=== PATIENT | female | born 1940 | race Caucasian/White ===

== ENCOUNTER 2016-11-08 00:42 | Emergency (ER) | payer MEDICARE, OTHER ==
[~2016-11-08] VITALS: Ht 167.6 cm; Wt 92.4 kg
[2016-11-08 00:42] VITALS: Ht 167.6 cm; Wt 92.4 kg
[~2016-11-08 00:42] MED LIST: ASCO-296 PO; CALC1TAB42 PO; CHON250C2 PO; FERR1TAB24 PO; LEVO175T40 PO; MULT-298 PO; VITA-282 PO; VITA1TAB82 PO; [UNRECOGNIZED DRUG - OTHER] PO
--- OUTSIDE RECORDS SUMMARY | 2016-11-08 00:45 | XMS REPORT | Referral Summary ---
Author Author [facility], Family [facility] Organization [facility] Address Unknown Phone Unavailable Care Team Providers Care Senior Application Security Consultant Name Role Phone Rajan Cole Primary Care Physician [phone] Encounter Date(s): 03/08/16 - 03/08/16 [facility], [address] [place] [id number] Discharge Diagnosis: Adult hypothyroidism Discharge Diagnosis: Osteoarthritis Discharge Diagnosis: Chronic venous insufficiency Discharge Diagnosis: Well woman exam Discharge Disposition: 01-Home or Self Care Attending Physician: Chadwick Cole MD Admitting Physician: Chadwick Cole MD Vital Signs Most recent to 1 oldest [Reference Range]: Temperature Tympanic 36.3 degC [36.6-38.1 degC] *LOW* (03/08/16 9:41 AM) Peripheral Pulse 84 bpm Rate [60-100 bpm] (03/08/16 9:41 AM) Blood Pressure 134/86 mmHg [90-140/60-90 mmHg] (03/08/16 9:41 AM) Problem List Condition Effective Dates Status Health Status Informant Obesity(Confirmed) Active patient Allergies, Adverse Reactions, Alerts Substance Reaction Severity Status aspirin GI problems Active caffeine GI problems Active ciprofloxacin GI problems Active LEG/MUCLE PAIN THIRST Diclofenac Sodium Active doxycycline Rash Active naproxen sodium Active penicillin Rash Active sulfanilamide topical Rash Active Medications Advil 200 mg oral tablet 2 tabs, Oral, q4hr, as needed for pain, 0 Refill(s) Start Date: 01/24/14 Status: Ordered Citracal + D Oral, Daily, takes 2 daily, 0 Refill(s) Start Date: 01/12/14 Status: Ordered Becki Root oral capsule Oral, Daily, 0 Refill(s) Start Date: 03/03/15 Status: Ordered Glucosamine Chondroitin MSM Complex oral tablet 1 tabs, Oral, TID, # 90 tabs, 0 Refill(s) Start Date: 01/12/14 Status: Ordered levothyroxine 175 mcg (0.175 mg) oral tablet See Instructions, TAKE ONE-HALF TABLET BY MOUTH EVERY DAY, # 30 tabs, 6 Refill(s ), Pharmacy: [id number], TAKE ONE-HALF TABLET BY MOUTH EVERY DAY Start Date: 03/03/15 Status: Ordered Misc Medication AVOVADO OIL: Take one by mouth once daily, 0 Refill(s) Start Date: 01/24/14 Status: Ordered potassium gluconate 550 mg, Oral, Daily, 0 Refill(s) Start Date: 08/23/15 Status: Ordered Probiotic Formula oral capsule caps, Oral, Daily, 0 Refill(s) Start Date: 03/03/15 Status: Ordered Vitamin B Complex oral tablet 1 tabs, Oral, Daily, One a Day Womens, 0 Refill(s) Start Date: 01/24/14 Status: Ordered Vitamin C 500 mg oral tablet 1 tabs, Oral, Daily, # 30 tabs, 0 Refill(s) Start Date: 01/12/14 Status: Ordered vitamin E 400 intl units oral capsule 1 caps, Oral, Daily, # 100 caps, 0 Refill(s) Start Date: 01/12/14 Status: Ordered Results No data available for this section Immunizations Vaccine Date Refusal Reason influenza virus vaccine, live 05/07/13 pneumococcal 13-valent conjugate vaccine 03/08/16 pneumococcal 23-polyvalent vaccine 03/03/15 tetanus/diphtheria/pertussis, acel(Tdap) 10/06/10 zoster vaccine live 04/13/12 Procedures Procedure Date Related Diagnosis Body Site DEXA - Dual energy X-ray photon 05/13/13 absorptiometry PAP test date 05/13/13 Mammogram 08/11/11 Colonoscope 08/11/03 Social History Social History Type Response Smoking Status Never smoker Assessment and Plan Extracted from: Title: Office Visit Note Author: Chadwick Cole MD Date: 03/08/16 Assessment/Plan 1.Chronic venous insufficiency I told her that this is the cause of her swelling and some of the discomfort in her lower extremities. I encouraged her to take 15-20 minutes twice a day late morning and late afternoon get her feet elevated above the level of her heart. We also talked about using support stockingsand she'll purchase some of those. No further intervention at this time. Ordered: Office Visit Level 4 Est 64586 2.Adult hypothyroidism She's getting lab drawn today and seeing Dr. Ahn next week no change in treatment at this time. Ordered: Office Visit Level 4 Est 14257 3.Osteoarthritis I think a lot of her lower extremity pain is related to the posterior arthritis in knees and possibly even ankles. Continue current treatment with [id number] medications and supplements for that. If she has worsening symptomsshe does have a relationship with Dr. Martinsfor further follow-up. Ordered: Office Visit Level 4 Est 85611 4.Well woman exam She will schedule her mammogram. She is up-to-date on vaccinations with the exception of Prevnar and we gave that today. Yearly follow-up encouraged. Ordered: Office Visit Level 4 Est 48703 Need for vaccination
--- OUTSIDE RECORDS SUMMARY | 2016-11-08 00:45 | XMS REPORT | Referral Summary ---
Author Author [facility], [facility] Organization [facility] Address Unknown Phone Unavailable Care Team Providers Care Forklift Material Handler Name Role Phone Rajan Cole Primary Care Physician [phone] Encounter VC Date(s): 08/23/15 - 08/23/15 [facility], [address] [place] [id number] Discharge Diagnosis: Dry mouth Discharge Diagnosis: Dysuria Discharge Diagnosis: Osteoarthritis Discharge Diagnosis: Dependent edema Discharge Disposition: 01-Home or Self Care Attending Physician: Chadwick Cole MD Admitting Physician: Chadwick Cole MD Vital Signs Most recent to 1 oldest [Reference Range]: Temperature Tympanic 36.4 degC [36.6-38.1 degC] *LOW* (08/23/15 2:28 PM) Peripheral Pulse 84 bpm Rate [60-100 bpm] (08/23/15 2:28 PM) Respiratory Rate 18 br/min [14-20 br/min] (08/23/15 2:28 PM) Blood Pressure 144/82 mmHg [90-140/60-90 mmHg] *HI* (08/23/15 2:28 PM) Problem List Condition Effective Dates Status Health [...] Status: Ordered Citracal + D Oral, Daily, 0 Refill(s) Start Date: 01/12/14 Status: Ordered Becki Root oral capsule Oral, Daily, 0 Refill(s) Start Date: 03/03/15 Status: Ordered Glucosamine Chondroitin MSM Complex oral tablet 1 tabs, Oral, TID, # 90 tabs, 0 Refill(s) Start Date: 01/12/14 Status: Ordered levothyroxine 175 mcg (0.175 mg) oral tablet See Instructions, TAKE ONE-HALF TABLET BY MOUTH EVERY DAY, # 30 tabs, 6 Refill(s ), Pharmacy: [id number], TAKE ONE-HALF TABLET BY MOUTH EVERY DAY [...] Complex oral tablet 1 tabs, Oral, Daily, 0 Refill(s) Start Date: 01/24/14 Status: Ordered Vitamin C 500 mg oral tablet 1 tabs, Oral, Daily, # 30 tabs, 0 Refill(s) Start Date: 01/12/14 Status: Ordered vitamin E 400 intl units oral capsule 1 caps, Oral, Daily, # 100 caps, 0 Refill(s) Start Date: 01/12/14 Status: Ordered Results Urinalysis Most recent to 1 oldest [Reference Range]: UA Color Yellow (08/23/15 3:20 PM) UA Appear Clear (08/23/15 3:20 PM) UA pH [5.0-8.0] 7.0 (08/23/15 3:20 PM) UA Leuk Est Pos 2+ [Negative] *ABN* (08/23/15 3:20 PM) UA Nitrite Negative [Negative] (08/23/15 3:20 PM) UA Protein Negative [Negative] (08/23/15 3:20 PM) UA Glucose Negative [Negative] (08/23/15 3:20 PM) UA Ketones Negative [Negative] (08/23/15 3:20 PM) UA Urobilinogen 0.2 mg/dL [<1.0 mg/dL] (08/23/15 3:20 PM) UA Bili [Negative] Negative (08/23/15 3:20 PM) UA Blood [Negative] Negative (08/23/15 3:20 PM) UA Spec Grav 1.013 [1.003-1.030] (08/23/15 3:20 PM) Type Clean Catch (08/23/15 3:20 PM) UA WBC [0-4] 10-20 *ABN* (08/23/15 3:20 PM) UA RBC [0-4] 0-4 (08/23/15 3:20 PM) Epithelial Cells 2-5 (08/23/15 3:20 PM) UA Hyal Cast [0-3] 1-3 (08/23/15 3:20 PM) Immunizations Vaccine Date Refusal Reason influenza virus vaccine, live 05/07/13 pneumococcal 23-polyvalent vaccine 03/03/15 tetanus/diphtheria/pertussis, acel(Tdap) 10/06/10 zoster vaccine live 04/13/12 Procedures Procedure Date Related Diagnosis Body Site DEXA - Dual energy X-ray photon 05/13/13 absorptiometry PAP test date 05/13/13 Mammogram 08/11/11 Colonoscope 08/11/03 Social History Social History Type Response Smoking Status Never smoker Assessment and Plan Extracted from: Title: Office Visit Note Author: Chadwick Cole MD Date: 08/23/15 Assessment/Plan Dependent edema reassurance at this time. Increasedtime with feet elevated above the level of the heart is encouraged.compression stockings are encouraged Ordered: Office Visit Level 4 Est 59919 Dry mouth laboratory studies to rule out Sjogren ordered Ordered: SANDIRNE Screen Office Visit Level 4 Est 51253 Rheumatoid Factor SSA Autoantibody SSB Autoantibody Dysuria UA ordered Ordered: Office Visit Level 4 Est 05677 Urinalysis with Culture if Indicated Osteoarthritis continued intermittent ibuprofen usage other options discussed Ordered: Office Visit Level 4 Est 58974
--- OUTSIDE RECORDS SUMMARY | 2016-11-08 00:45 | XMS REPORT | Referral Summary ---
Author Author [facility], Family Medicine Organization [facility] Address Unknown Phone Unavailable Care Team Providers Care Vinyl Welder And Fabricator Name Role Phone Rajan Cole Primary Care Physician [phone] Encounter Date(s): 03/03/15 - 03/03/15 [facility], [address] [place] [id number]- Discharge Diagnosis: Adult hypothyroidism Discharge Diagnosis: Osteoarthritis Discharge Disposition: 01-Home or Self Care Attending Physician: Chadwick Cole MD Admitting Physician: Chadwick Cole MD Vital Signs Most recent to 1 oldest [Reference Range]: Temperature Tympanic 36.8 degC [36.6-38.1 degC] (03/03/15 1:16 PM) Peripheral Pulse 80 bpm Rate [60-100 bpm] (03/03/15 1:16 PM) Respiratory Rate 18 br/min [14-20 br/min] (03/03/15 1:16 PM) Blood Pressure 144/80 mmHg [90-140/60-90 mmHg] *HI* (03/03/15 1:16 PM) Problem List Condition Effective Dates Status [...] # 30 tabs, 6 Refill(s ), Pharmacy: [id number], TAKE ONE-HALF TABLET BY MOUTH EVERY DAY [...] Visit Note Author: Chadwick Cole MD Date: 03/03/15 Assessment/Plan Adult hypothyroidism TSH is normal. No change in treatment recommended refills given on levothyroxine. Ordered: pneumococcal 23-polyvalent vaccine, 0.5 mL, IntraMuscular, Once, First Dose: 15:00:00 CDT, Stop Date: 03/03/15 15:00:00 CDT Office Visit Level 4 Est 20511 Osteoarthritis Chronic stable no change in current treatment. From a health maintenance standpoint I recommended and we did give Pneumovax today. Recent laboratory studies are reviewed no changes in treatment recommended based on those. We talked about further evaluation for her dry mouth she hold off on that. She is overdue for colonoscopy once but that off until later in the year. Mammogram is been recommended and ordered. Ordered: Office Visit Level 4 Est 67500 Orders: levothyroxine, See Instructions, TAKE ONE-HALF TABLET BY MOUTH EVERY DAY, # 30 tabs, 6 Refill(s), Pharmacy: [id number], TAKE ONE-HALF TABLET BY MOUTH EVERY DAY
--- NOTE | 2016-11-08 01:35 | NUR ---
CXR COMPLETED IN ROOM
--- NOTE | 2016-11-08 01:36 | ERPDOC ---
Departure Disposition Decision Date: Nov 08, 2016 Disposition Decision Time: 02:57 Disposition: 01 DISCHARGED HOME, SELF-CARE Impression Impression Impression: Primary Impression: Leg pain, left Severity: Moderate Condition: Stable Seen By: Physician only Referrals: IFTIKHAR BOATENG MD (Family) 1 Day Patient Instructions: Leg Pain (ED) Problems/Meds/Labs Reviewed?: Yes Medications reviewed and manag: Yes Additional Instructions: We did not find a cause of your leg pain tonight. Follow up with Dr. Chau's office tomorrow to determine the status of your referral to the vascular surgeon. You should also discuss what Dr. Boateng thinks would be best for you to take to treat your pain going forward. Speaking with Dr. Martins may give you more information on how to treat your symptoms. Follow up care ordered?: Yes Mental Status: Alert, Oriented HPI - Lower Extremity General Chief Complaint: Lower Extremity Pain Stated Complaint: PAIN IN BOTH LEGS Time Seen by Provider: 01:01 Source: patient, family Exam Limitations: no limitations HPI - Lower Extremity Initial Comments 76yo woman presents to the ER tonight with L>>R LE pain. Pt has a long h/o deep , crampy pain in her left leg; she has seen her PCM for this recently and has been referred to a vascular surgeon for further evaluation. Pt has not scheduled f/u with the vascular surgeon. Occurred At: home Onset/Timing: Constant Duration: other Pain/Severity Scale: Now & Worst: 6/10 Severity: moderate Pain/Injury Location: bilateral leg Method of Injury: unknown Modifying Factors/Context: IMPROVES WITH: immobilization, WORSE WITH: movement Quality: aching, cramping Allergies: Coded Allergies: Penicillins (Verified Allergy, Intermediate, RASH, 11/08/16) diclofenac (Verified Allergy, Intermediate, RASH, 11/08/16) naproxen (Verified Allergy, Intermediate, HIVES, 11/08/16) sulfite (Verified Allergy, Intermediate, RASH, 11/08/16) Shellfish (Verified Allergy, Unknown, 11/08/16) aspirin (Verified Adverse Reaction, Mild, UPSET STOMACH, 11/08/16) doxycycline (Verified Adverse Reaction, Mild, VOMITING, 11/08/16) Past History Past Medical History Metabolic: hypothyroidism Cardiac: CAD Surgical History Reproductive/: hysterectomy Joint: hip Family History Family PMH: FOUND: [place], diabetes, hypertension Vaccines Hx Influenza Vaccination: No Hx Pneumococcal Vaccination: No Hx Tetanus Diptheria: No (UNKNOWN) Review of Systems Musculoskeletal General: cramps, pain All other Systems All Other Systems: Reviewed and Negative Physical Exam General General Nourishment: well nourished, well developed, appears stated age, no acute distress, adult, obese General Body Habitus: well groomed Vitals and Pain Weight: Kilograms: 92.400 Height (feet): 5 Height (inches): 6.00 Triage Pain Scale: RN VS reviewed by Provider: Yes Normal Exams: Head: Normocephalic w/o trauma Eyes: Pupils are PERRLA w/ EOMI, No scleral icterus, irritation ENMT: No facial trauma, nasal exudates, pharyngeal erythema Neck: Full range of motion, without adenopathy, JVD Chest/Resp: Clear all powers, with good airflow, and symmetry bilaterally CV: Regular rate and rhythm, without murmur or gallop, Pulses 2+ all extremities Abdomen: Bowel sounds positive, soft, non-tender, non-distended Lymphatic: No lymphadenopathy Musculoskeletal: No tenderness, or deformity noted Integumentary: No rashes, hives, or bruising noted Neurologic: Patient is alert, and oriented Psychiatric: Patient exhibits, appropriate attention Musculoskeletal Extremity : Side: Bilateral Extremity: thigh, leg Extremity Findings: NOT FOUND: deformity, discoloration, laceration, pain, swelling Differential Diagnoses Considering: Cellulitis, Compartment Syndrome, Contusion, Fracture, Sprain, Strain, Trauma, Vascular Compromise, Other (PAD) Progress Results/Orders Orders Procedure Category Date Status Time Cbc W/Auto LAB 11/08/16 Complete Diff-Reflex Manual 01:21 Bmp - Basic Metabolic LAB 11/08/16 Complete Panel 01:21 Probnp LAB 11/08/16 Complete 01:21 Troponin I W LAB 11/08/16 Complete Hemolysis Index 01:21 INR LAB 11/08/16 Complete 01:21 EKG EKG 11/08/16 Taken 01:21 Chest 1 View RAD 11/08/16 Resulted 01:21 Lab Results Laboratory Tests Test 11/08/16 01:47 White Blood Count 5.5T/MM3 Red Blood Count 4.43M/MM3 Hemoglobin 13.2GM/DL Hematocrit 40.0% Mean Corpuscular Volume 90.3UM3 Mean Corpuscular Hemoglobin 29.8UUG Mean Corpuscular Hemoglobin Concent 33.0GM/DL RDW Standard Deviation 46.5FL Platelet Count 189T/MM3 Mean Platelet Volume 9.9UM3 Immature Granulocyte % (Auto) 0.2% Neutrophils (%) (Auto) 59.5% Lymphocytes (%) (Auto) 28.1% Monocytes (%) (Auto) 9.3% Eosinophils (%) (Auto) 2.7% Basophils (%) (Auto) 0.2% Absolute Immature Granulocyte (auto 0.01T/MM3 Absolute Neutrophils (auto) 3.3T/MM3 Absolute Lymphocytes (auto) 1.5T/MM3 Absolute Monocytes (auto) 0.5T/MM3 Absolute Eosinophils (auto) 0.2T/MM3 Absolute Basophils (auto) 0.0T/MM3 Prothromb Time International Ratio 0.96 Turbidity < 20 Sodium Level 140MEQ/L Potassium Level 4.1MEQ/L Chloride Level 103MEQ/L Carbon Dioxide Level 28MEQ/L Anion Gap 9MEQ/L Blood Urea Nitrogen 14.0MG/DL Creatinine 0.6MG/DL Glomerular Filtration Rate Calc 97 BUN/Creatinine Ratio 23RATIO Glucose Level 85MG/DL Calculated Osmolality 269MOSM/KG Calcium Level 9.7MG/DL Icterus Index < 2 Troponin I < 0.012ng/ml IO-Yoy-M-Type Natriuretic Peptide 137PG/ML Chemistry Specimen Hemolysis < 15 Progress Progress Discussed limits of evaluation with pt who voiced understanding. Conducted evaluation for obvious/emergent causes of pts sx; none found. Discussed dx, prognosis, and need for f/u with pt. Will need to f/u with PCM for chronic medications and to determine status of vascular referral. Pt voiced understanding. EKG EKG : Rate: 60-100 Rhythm: sinus [place]: normal QRS: normal Intervals: normal ST/T: normal Interpreted by: signing physician Xray Xray : Xray: CXR Portable Interpretation: Normal, Interpreted by MARCELINO Gonzalez DO Nov 08, 2016 01:36
[2016-11-08 01:55] LABS: BASOPHILS % (AUTO) 0.2 % (0-2); EOSINOPHILS # (AUTO) 0.2 T/MM3 (0-0.5); EOSINOPHILS % (AUTO) 2.7 % (0-4); HGB - HEMOGLOBIN 13.2 GM/DL (12-16); IMMATURE GRANULOCYTE # (AUTO) 0.01 T/MM3 (0.00-0.03); IMMATURE GRANULOCYTE % (AUTO) 0.2 % (0.0-0.5); LYMPHOCYTES # (AUTO) 1.5 T/MM3 (1-4.8); LYMPHOCYTES % (AUTO) 28.1 % (23-45); MEAN CORPUSCULAR HGB 29.8 UUG (26-34); MEAN CORPUSCULAR VOLUME 90.3 UM3 (80-100); MEAN PLATELET VOLUME 9.9 UM3 (9.4-12.4); MONOCYTES # (AUTO) 0.5 T/MM3 (0-0.8); MONOCYTES % (AUTO) 9.3 % (0-9.0); NEUTROPHILS #(AUTO)-ABSOLUTE 3.3 T/MM3 (1.8-7.7); NEUTROPHILS % (AUTO) 59.5 % (33-66); RED BLOOD COUNT 4.43 M/MM3 (4.00-5.20); WBC - WHITE BLOOD COUNT 5.5 T/MM3 (4.5-11.0)
[2016-11-08 02:00] LABS: INR 0.96 (0.76-1.04); PROTHROMBIN TIME 10.5 SEC (9.31-12.49)
--- NOTE | 2016-11-08 02:00 | NUR ---
STATUS PT IS UP TO THE BATHROOM. AMBULATORY BACK TO HER ROOM
[2016-11-08 02:16] LABS: ANION GAP 9 MEQ/L (5-15); BUN/CREATININE RATIO 23 RATIO (6-26); CALCIUM 9.7 MG/DL (8.4-10.2); CHLORIDE 103 MEQ/L (98-107); CO2 - CARBON DIOXIDE 28 MEQ/L (22-30); CREATININE 0.6 MG/DL (0.7-1.2); GLOMERULAR FILTRATION RATE 97; GLUCOSE 85 MG/DL (65-110); POTASSIUM 4.1 MEQ/L (3.6-5); SODIUM 140 MEQ/L (134-144)
[2016-11-08 02:28] LABS: PROBNP 137 PG/ML (0-175)
[2016-11-08 03:10] VITALS: BP 186/76; PULSE 70; RESP 18; TEMP 98; O2SAT 94
--- NOTE | 2016-11-08 03:10 | NUR ---
depart pt is given dismissal instructions with verbal understanding. p tleaves ambualtory with to ed registration desk
--- NOTE | 2016-11-08 07:55 | DI ---
Indication: ITS.REASON: LE swelling PROCEDURE: CHEST 1 VIEW: Encounter: Initial Comparison: None FINDINGS: The lungs are clear. There is no abnormal airspace opacity, pleural effusion or pneumothorax identified. The heart size, pulmonary vasculature and mediastinum are within normal limits. IMPRESSION: No acute cardiopulmonary abnormality. .
== END 2016-11-08 03:10 | disposition home or self-care (01) ==
LOC: ED 00:42
DX: M79.605 Pain in left leg (principal); M79.604 Pain in right leg
CPT/HCPCS: 36415; 80048; 83880; 84484; 85025; 85610; 93005

== ENCOUNTER → 2016-11-18 | Outpatient (CLI) | payer MEDICARE, OTHER ==
[~2016-11-18] MED LIST changes: -FERR1TAB24 PO
--- NOTE | 2016-11-18 15:20 | DI ---
Indication: ITS.REASON: M79.604 low back and posterior thigh pain for several months PROCEDURE: MRI LUMBAR SPINE W/O CONTRAST: Encounter: Initial Comparison: None Technique: Multiplanar multisequence MR imaging of the lumbar spine was performed without contrast. Findings: Alignment of the lumbar spine shows mild scoliotic curvature. There is degenerative grade 1 anterolisthesis of L5 on S1. No acute fractures seen. The paraspinal soft tissues are unremarkable. Segmental analysis: L1-L2: Mild degenerative facet disease. No focal disk herniation or central canal stenosis. No significant right foraminal narrowing. Mild left neural foraminal narrowing. L2-L3: No focal central protrusion or central canal stenosis. Prominent right lateral osteophytes. No neural foraminal stenosis. L3-L4: Mild disk bulging and height loss and degenerative facet change contributing to mild central canal stenosis. Severe right foraminal stenosis with bony impingement on the exiting right L3 nerve root. Moderate left neural foraminal stenosis. L4-L5: Degenerative facet hypertrophy with a small disk bulge contributes to mild to moderate central canal stenosis and lateral recess narrowing. Severe bony neural foraminal stenosis bilaterally with impingement on both exiting L4 nerve roots. L5-S1: Degenerative facet hypertrophy. No central canal stenosis. Moderate right and mild left neural foraminal stenosis. Impression: Primarily degenerative facet change with areas of neural foraminal stenosis and nerve root impingement. .
== END ==
LOC: IMA 13:21
PROVIDERS: ATTEND Orthopaedic Surgery
DX: M47.896 Other spondylosis, lumbar region (principal); M47.897 Other spondylosis, lumbosacral region; M79.651 Pain in right thigh; M79.652 Pain in left thigh; M54.5 Low back pain

== ENCOUNTER 2017-05-12 04:59 | Inpatient (IN) ==
[2017-05-12] MEDS ORDERED: SALINE FLUSH 10ml SYRINGE IVF PRN (05:09)
[2017-05-12] MEDS ORDERED: NITROGLYCERIN 2% OINTMENT 1gm PACKET TP ONE (05:10)
--- NOTE | 2017-05-12 05:14 | Emergency Department Report ---
Chest Pain HPI - General Stated Complaint: cp Time Seen by Provider: 05/12/17 05:08 Source: patient Mode of arrival: ambulatory Limitations: no limitations - History of Present Illness HPI narrative: Patient presents with 2 hour history of chest pain this morning that she describes as dull pressure aching with radiation into the right side of the neck and into the jaw. Patient was found by EMS to have a normal sinus rhythm on her EKG, normal blood sugars and vital signs, and was given 2 nitroglycerin in route to complete relief of her pain. Patient states that for the past month and a half she's had multiple similar episodes, associated with activity, and resolving with rest. She had seen Dr. Cole her primary care physician, and due to the sensation in the back of the throat, as though it were a burning sensation, she did receive a referral to an ENT physician, but has not seen a physician yet. Patient has no significant risk factors for heart disease other than her age. Patient has no high blood pressure, diabetes, smoking history, coronary disease/NV history, and has never had symptoms like this previously. MD complaint: chest pain Occurred At: home Onset (ago): hour(s) Duration: constant Onset: during rest Pain location: substernal Severity: moderate - Related Data Home Medications Medication Instructions Recorded Confirmed Vitamin E Mixed [Vitamin E] 400 unit PO DAILY #0 05/08/09 Ascorbic Acid [Vitamin C] 500 mg PO DAILY #0 05/09/09 Calcium Citrate/Vitamin D3 1 tab PO BID #0 05/09/09 [Calcium Cit-Vit D 250-200 Tab] Multivits W-Ca,Fe,Other Min 1 tab PO DAILY #0 05/09/09 (One-A-Day Women's) Vitamin B Complex (Vitamin B-100 1 tab.sa PO DAILY #0 05/09/09 Balanced) AVACO ASU 1 tab PO BID #0 03/04/17 Advil (Ibuprofen) 200 mg tablet 200 mg PO .prn tab 03/04/17 shahnaz (Zingiber officinalis) 250 500 mg PO DAILY PRN cap 03/04/17 mg capsule glucosamine-chondroitin 250 mg-200 1 tab PO DAILY tab 03/04/17 mg tablet lactobacillus combination no.8 3 cell PO DAILY cap 03/04/17 billion cell capsule potassium gluconate 500 mg (83 mg) mg PO DAILY tab 03/04/17 tablet nueroquell See Label Instructions PO .COMPLEX 03/17/17 Previous Rx's Medication Instructions Recorded levothyroxine 175 mcg tablet 175 mcg PO .COMPLEX #90 tab 03/17/17 Allergies Allergy/AdvReac Type Severity Reaction Status Date / Time diclofenac Allergy Intermediate RASH Verified 05/12/17 05:20 naproxen Allergy Intermediate HIVES Verified 05/12/17 05:20 Penicillins Allergy Intermediate RASH Verified 05/12/17 05:20 sulfite Allergy Intermediate RASH Verified 05/12/17 05:20 ciprofloxacin [From Cipro] Allergy Verified 05/12/17 05:20 metronidazole Allergy Verified 05/12/17 05:20 aspirin AdvReac Mild UPSET Verified 05/12/17 05:20 STOMACH doxycycline AdvReac Mild VOMITING Verified 05/12/17 05:20 Shellfish Allergy Unknown Uncoded 05/12/17 05:20 lutien Allergy Uncoded 05/12/17 05:20 Review of Systems All systems: reviewed and negative except as stated PFSH Patient Stated Medical History Hx Urinary Tract Infection Yes Osteoarthritis Yes Clostridium Difficile Yes: 2015 [facility] Medical History Hypothyroidism (Chronic Medical ~1975) Clinically and chemically euthyroid. Surgical History: Hysterectomy;2003, 2 hip replacements; 2007 and 2008 Family History: Family History (Last Updated 03/17/17 @ 10:00 by Amira Sheikh MA) Father Heart disease Emphysema (subcutaneous) (surgical) resulting from a procedure Mother Thyroid disease - Social History Smoking status: Never smoker Physical Exam - Limitations Limitations: no limitations - General General appearance: alert - Normal Exams: Head:: Normocephalic without trauma Eyes:: Pupils are PERRLA w/ EOMI, No scleral icterus, irritation, or foreign bodies noted ENMT:: No facial trauma, nasal exudates, pharyngeal erythema, or exudates are noted Neck:: Full range of motion, without adenopathy, JVD, bruits or thyromegaly Chest/Respirations:: Clear all powers, with good airflow, and symmetry bilaterally Cardiovascular:: Regular rate and rhythm, without murmur or gallop, Pulses 2+ all extremities, capillary refill, <2 seconds all extremities Abdomen:: Bowel sounds positive, soft, non-tender, non-distended, no hepatosplenomegaly, masses or bruits noted Lymphatic:: No lymphadenopathy, or lymphedema noted Musculoskeletal:: No tenderness, or deformity noted, good range of motion, all extremities Integumentary:: No rashes, hives, or bruising noted, hair and nails, without abnormality Neurological:: Patient is alert, and oriented, cranial nerves, motor/sensory/ cerebellar, exams w/o gross deficits, to observation Psychiatric:: Patient exhibits, appropriate attention, emotion and affect Course Vital Signs Temperature 98.7 F 05/12/17 04:59 Pulse Rate 73 05/12/17 04:59 Respiratory Rate 18 05/12/17 04:59 Blood Pressure 141/84 H 05/12/17 04:59 Pulse Oximetry 96 05/12/17 04:59 Temperature 98.7 F 05/12/17 04:59 Pulse Rate 73 05/12/17 04:59 Respiratory Rate 18 05/12/17 04:59 Blood Pressure 141/84 H 05/12/17 04:59 Pulse Oximetry 96 05/12/17 04:59 Chest Pain - MDM Narrative Medical decision making narrative: EKG shows a normal sinus rhythm without ischemia, ectopy, or infarction. Patient is chest pain-free at this time, therefore 1 inch of Nitropaste is applied Patient states that she is not allowed to take aspirin, as she has had significant negative reactions including skin hemorrhaging and severe gastritis to aspirin in the past. CBC - N CMP/L - N Troponin - elevated, 0.423 CXR - normal Case is discussed with Dr. BALLARD, will admit to CCU, start heparin drip, and planned catheterization later today - Lab Data Result diagrams: 05/12/17 05:17 05/12/17 05:17 Lab Results 05/12/17 05/12/17 05/12/17 Range/Units 05:17 05:17 05:17 WBC 4.1 L (4.5-11.0) T/MM3 RBC 4.41 (4.00-5.20) M/MM3 Hgb 13.2 (12-16) GM/DL Hct 40.2 (36-46) % MCV 91.2 (80-100) UM3 MCH 29.9 (26-34) UUG MCHC 32.8 (31-37) GM/DL RDW Std Deviation 45.3 (36.9-50.2) FL Plt Count 184 (130-400) T/MM3 MPV 10.4 (9.4-12.4) UM3 Immature Gran % (Auto) 0.5 (0.0-0.5) % Neut % (Auto) 60.2 (33-66) % Lymph % (Auto) 26.8 (23-45) % Lincoln % (Auto) 8.7 (0-9.0) % Eos % (Auto) 3.6 (0-4) % Baso % (Auto) 0.2 (0-2) % Neut # (Auto) 2.5 (1.8-7.7) T/MM3 Lymph # (Auto) 1.1 (1-4.8) T/MM3 Lincoln # (Auto) 0.4 (0-0.8) T/MM3 Eos # (Auto) 0.2 (0-0.5) T/MM3 Baso # (Auto) 0.0 (0-0.2) T/MM3 Abs Immat Gran (auto) 0.02 (0.00-0.03) T/MM3 INR 0.94 L (0.99-1.21) APTT 30.9 (24-36) SEC Turbidity < 20 (0-20) Sodium 140 (134-144) MEQ/L Potassium 3.5 L (3.6-5) MEQ/L Chloride 106 (98-107) MEQ/L Carbon Dioxide 26 (22-30) MEQ/L Anion Gap 8 (5-15) MEQ/L BUN 15.0 (7-17) MG/DL Creatinine 0.7 (0.7-1.2) MG/DL GFR Calculation 81 BUN/Creatinine Ratio 21 (6-26) RATIO Glucose 96 (65-110) MG/DL Calculated Osmolality 270 (261-280) MOSM/KG Calcium 9.7 (8.4-10.2) MG/DL Total Bilirubin 0.60 (0.20-1.30) MG/DL Conjugated Bilirubin 0.00 (0.00-0.30) MG/DL Unconjugated Bilirubin 0.30 (0.00-1.1) MG/DL Icterus Index < 2 (0-7) AST 23 (14-36) U/L ALT 36 (9-52) U/L Alkaline Phosphatase 74 (38-126) U/L Troponin I 0.426 H (0-0.12) ng/ml Total Protein 6.5 (6.3-8.2) G/DL Albumin 3.7 (3.5-5.0) G/DL Globulin 2.8 (2.4-3.6) G/DL Albumin/Globulin Ratio 1.3 (1.1-2.2) RATIO Lipase 55 (23-300) U/L Specimen Hemolysis < 15 (0-25) Critical Care Time Critical Care Time: Yes Total Critical Care Time: 40 Attestation: Patient required advanced diagnostic and therapeutics for non-ST segment elevation NV Disposition Clinical Impression: Non-STEMI (non-ST elevated myocardial infarction) Disposition: 02 To [facility] [place] Acute Care Condition: Improved Prescriptions: No Action Multivits W-Ca,Fe,Other Min (One-A-Day Women's) 1 tab PO DAILY #0 Vitamin E Mixed [Vitamin E] 400 unit PO DAILY #0 Calcium Citrate/Vitamin D3 [Calcium Cit-Vit D 250-200 Tab] 1 tab PO BID #0 Ascorbic Acid [Vitamin C] 500 mg PO DAILY #0 Vitamin B Complex (Vitamin B-100 Balanced) 1 tab.sa PO DAILY #0 AVACO ASU 1 tab PO BID #0 glucosamine-chondroitin 250 mg-200 mg tablet 1 tab PO DAILY tab Advil (Ibuprofen) 200 mg tablet 200 mg PO .prn tab lactobacillus combination no.8 3 billion cell capsule cell PO DAILY cap nueroquell See Label Instructions PO .COMPLEX levothyroxine 175 mcg tablet 175 mcg PO .COMPLEX #90 tab shahnaz (Zingiber officinalis) 250 mg capsule 500 mg PO DAILY PRN cap potassium gluconate 500 mg (83 mg) tablet mg PO DAILY tab - Seen By: physician
--- OUTSIDE RECORDS SUMMARY | 2017-05-12 05:28 | External Medical Summary | Referral Summary ---
:1940 Author Organization [facility] Address [address] [place] [address] [place] [phone] Care Team Providers Name Role Phone Chadwick Cole Primary Care Physician Encounter VC Date(s): 03/08/16 - 03/08/16 [facility] [place] [phone] [place] Discharge Diagnosis: Adult hypothyroidism Discharge Diagnosis: Osteoarthritis Discharge Diagnosis: Chronic venous insufficiency Discharge Diagnosis: Well woman exam Discharge Disposition: 01-Home or Self Care Attending Physician: Chadwick Cole MD Admitting Physician: Chadwick Cole MD Vital Signs Most recent to oldest [Reference Range]: 1 Temperature Tympanic [36.6-38.1 degC] 36.3 degC *LOW* (03/08/16 9:41 AM) Peripheral Pulse Rate [60-100 bpm] 84 bpm (03/08/16 9:41 AM) Blood Pressure [90-140/60-90 mmHg] 134/86 mmHg (03/08/16 9:41 AM) Problem List Condition Effective [...] pain, 0 Refill(s) Start Date: 01/24/14 Status: OrderedCitracal + D Oral, Daily, takes 2 daily, 0 Refill(s) Start Date: 01/12/14 Status: OrderedGinger Root oral capsule Oral, Daily, 0 Refill(s) Start Date: 03/03/15 Status: OrderedGlucosamine Chondroitin MSM Complex oral tablet 1 tabs, Oral, TID, # 90 tabs, 0 Refill(s) Start Date: 01/12/14 Status: Orderedlevothyroxine 175 mcg (0.175 mg) oral tablet See Instructions, TAKE ONE-HALF TABLET BY MOUTH EVERY DAY, # 30 tabs, 6 Refill(s ), Pharmacy: [id number], TAKE ONE-HALF TABLET BY MOUTH EVERY DAY Start Date: 03/03/15 Status: OrderedMisc Medication AVOVADO OIL: Take one by mouth once daily, 0 Refill(s) Start Date: 01/24/14 Status: Orderedpotassium gluconate 550 mg, Oral, Daily, 0 Refill(s) Start Date: 08/23/15 Status: OrderedProbiotic Formula oral capsule caps, Oral, Daily, 0 Refill(s) Start Date: 03/03/15 Status: OrderedVitamin B Complex oral tablet 1 tabs, Oral, Daily, One a Day Womens, 0 Refill(s) Start Date: 01/24/14 Status: OrderedVitamin C 500 mg oral tablet 1 tabs, Oral, Daily, # 30 tabs, 0 Refill(s) Start Date: 01/12/14 Status: Orderedvitamin E 400 intl units oral capsule 1 [...] Site DEXA - Dual energy X-ray photon absorptiometry 05/13/13 PAP test date 05/13/13 Mammogram 08/11/11 Colonoscope [...] take 15-20 minutes twice a day late morn ing and late afternoon get her feet elevated above the level of her heart. We also talked about usingsupport stockingsand she'll purchase some of those. No further intervention at this time. Ordered: Office Visit Level 4 Est 49028 2.Adult hypothyroidism She's getting lab drawn today and seeing Dr. Ahn next week no change in treatment at this time. Ordered: Office Visit Level 4 Est 10363 3.Osteoarthritis I think a lot of her lower extremity pain is related to the posterior arthritis in knees and possibly even ankles. Continue current treatment with [id number] medications a nd supplements for that. If she has worsening symptomsshe does have a relationship with Dr. Martinsfor further follow-up. Ordered: Office Visit Level 4 Est 54834 4.Well woman exam She will schedule her mammogram. She is up-to-date on vaccinations with the exception of Prevnar and we gave that today. Yearly follow-up encouraged. Ordered: Office Visit Level 4 Est 28438 Need for vaccination
--- OUTSIDE RECORDS SUMMARY | 2017-05-12 05:28 | External Medical Summary | Referral Summary ---
:1939 Author Organization [facility] Address [address] [place] [address] [place] [phone] Care Team Providers Name Role Phone Chadwick Cole Primary Care Physician Encounter VC Date(s): 03/03/15 - 03/03/15 [facility] [address] [place] [phone] [place] Discharge Diagnosis: Adult hypothyroidism Discharge Diagnosis: Osteoarthritis Discharge Disposition: 01-Home or Self Care Attending Physician: Chadwick Cole MD Admitting Physician: Chadwick Cole MD Vital Signs Most recent to oldest [Reference Range]: 1 Temperature Tympanic [36.6-38.1 degC] 36.8 degC (03/03/15 1:16 PM) Peripheral Pulse Rate [60-100 bpm] 80 bpm (03/03/15 1:16 PM) Respiratory Rate [14-20 br/min] 18 br/min (03/03/15 1:16 PM) Blood Pressure [90-140/60-90 mmHg] 144/80 mmHg *HI* (03/03/15 1:16 PM) Problem List Condition [...] 01/24/14 Status: OrderedCitracal + D Oral, Daily, 0 Refill(s) Start Date: 01/12/14 Status: OrderedGinger Root oral capsule Oral, Daily, 0 Refill(s) Start Date: 03/03/15 Status: OrderedGlucosamine Chondroitin MSM Complex oral tablet 1 tabs, Oral, TID, # 90 tabs, 0 Refill(s) Start Date: 01/12/14 Status: Orderedlevothyroxine 175 mcg (0.175 mg) oral tablet See Instructions, TAKE ONE-HALF TABLET BY MOUTH EVERY DAY, # 30 tabs, 6 Refill(s ), Pharmacy: [id number], TAKE ONE-HALF TABLET BY MOUTH EVERY [...] Daily, 0 Refill(s) Start Date: 01/24/14 Status: OrderedVitamin [...] vaccine, 0.5 mL, IntraMuscular, Once, First Dose: 03/03/15 15:00:00 CDT, Stop Date: 03/03/15 15:00:00 CDT Office Visit Level 4 Est 87475 Osteoarthritis Chronic stable no change in current treatment. From a health maintenance standpoint I recommended and we did give Pneumovax today. Recent laboratory studies are reviewed no changes in treatment recommended based on those. We talked about furth er evaluation for her dry mouth she hold off on that. She is overdue for colonoscopy once but that off until later in the year. Mammogram is been recommended and ordered. Ordered: Office Visit Level 4 Est 97294 Orders: levothyroxine, See Instructions, TAKE ONE-HALF TABLET BY MOUTH EVERY DAY, # 30 tabs, 6 Refill(s), Pharmacy: [id number], TAKE ONE-HALF TABLET BY MOUTH EVERY DAY
--- OUTSIDE RECORDS SUMMARY | 2017-05-12 05:28 | External Medical Summary | Referral Summary ---
:1939 Author Organization [facility] Address [address] [place] [address] [place] [phone] Care Team Providers Name Role Phone Chadwick Cole Primary Care Physician Encounter VC Date(s): 08/23/15 - 08/23/15 [facility] [place] [phone] [place] Discharge Diagnosis: Dry mouth Discharge Diagnosis: Dysuria Discharge Diagnosis: Osteoarthritis Discharge Diagnosis: Dependent edema Discharge Disposition: 01-Home or Self Care Attending Physician: Chadwick Cole MD Admitting Physician: Chadwick Cole MD Vital Signs Most recent to oldest [Reference Range]: 1 Temperature Tympanic [36.6-38.1 degC] 36.4 degC *LOW* (08/23/15 2:28 PM) Peripheral Pulse Rate [60-100 bpm] 84 bpm (08/23/15 2:28 PM) Respiratory Rate [14-20 br/min] 18 br/min (08/23/15 2:28 PM) Blood Pressure [90-140/60-90 mmHg] 144/82 mmHg *HI* (08/23/15 2:28 PM) Problem List Condition [...] # 30 tabs, 6 Refill(s ), Pharmacy: [id number], TAKE ONE-HALF TABLET BY MOUTH EVERY [...] Status: Ordered Results Urinalysis Most recent to oldest [Reference Range]: 1 UA Color Yellow (08/23/15 3:20 PM) UA Appear Clear (08/23/15 3:20 PM) UA pH [5.0-8.0] 7.0 (08/23/15 3:20 PM) UA Leuk Est [Negative] Pos 2+ *ABN* (08/23/15 3:20 PM) UA Nitrite [Negative] Negative (08/23/15 3:20 PM) UA Protein [Negative] Negative (08/23/15 3:20 PM) UA Glucose [Negative] Negative (08/23/15 3:20 PM) UA Ketones [Negative] Negative (08/23/15 3:20 PM) UA Urobilinogen [<1.0 mg/dL] 0.2 mg/dL (08/23/15 3:20 PM) UA Bili [Negative] Negative (08/23/15 3:20 PM) UA Blood [Negative] Negative (08/23/15 3:20 PM) UA Spec Grav [1.003-1.030] 1.013 (08/23/15 3:20 PM) Type Clean Catch (08/23/15 [...] encouraged Ordered: Office Visit Level 4 Est 42703 Dry mouth laboratory studies to rule out Sjogren ordered Ordered: SANDRINE Screen Office Visit Level 4 Est 33100 Rheumatoid Factor SSA Autoantibody SSB Autoantibody Dysuria UA ordered Ordered: Office Visit Level 4 Est 88523 Urinalysis with Culture if Indicated Osteoarthritis continued intermittent ibuprofen usage other options discussed Ordered: Office Visit Level 4 Est 63827
[2017-05-12] MEDS ORDERED: HEPARIN 1,000unit/ml INJECTION 10ml IVP ONE (06:00)
[2017-05-12] MEDS ORDERED: HEPARIN DRIP 20,000 UNIT/500 ML BAG IV SCH (06:15)
[2017-05-12 06:45] VITALS: BMI 32.3
[2017-05-12] MEDS ORDERED: PNEUMOCOCCAL 23 VACCINE 0.5ml INJECTION IM ONE (06:48)
--- NOTE | 2017-05-12 07:52 | Pharmacy Consult ---
Pharmacy Consult-Heparin - Laboratory Information Heparin Plt Count 184 T/MM3 (130-400) 05/12/17 05:17 APTT 30.9 SEC (24-36) 05/12/17 05:17 - Consult Information HEPARIN CONSULT (Initial): Dx: CHEST PAIN Baseline PTT = NOT ORDERED. Baseline platelet count = 184 T/mm3. PTT Target Range = 50-75 Provider ordered Heparin Bolus of 4,000units, and begun Heparin Drip at 1, 000units/hr (25ml/hr). Heparin 20,000 units in D5W 500ml. We will continue to monitor and make adjustments accordingly. Thank you.
--- NOTE | 2017-05-12 08:39 | XRay Report ---
Indication: Upper chest pain PROCEDURE: XR chest 1V: Encounter: Initial Comparison: None FINDINGS: The lungs are clear. Left lower lobe granuloma. There is no abnormal airspace opacity, pleural effusion or pneumothorax identified. The heart size, pulmonary vasculature and mediastinum are within normal limits. IMPRESSION: No acute cardiopulmonary abnormality. .
[2017-05-12] MEDS: NITROGLYCERIN 2% OINTMENT 1gm PACKET TP SCH ×2 (09:13→16:51)
[2017-05-12] MEDS ORDERED: INFLUENZA VAC High Dose 2017-18 (Fluzone HD*) (>=65yo) 0.5ml IM ONE (09:18)
[2017-05-12] MEDS ORDERED: INFLUENZA VAC. INJ. ADMIN CHARGE INJ ONE (09:50)
--- NOTE | 2017-05-12 10:41 | Cardiology History & Physical ---
History of Present Illness Chief complaint: chest pain HPI: Sandra is a 76 year old female patient of Dr. Chadwick Cole who presented to the ED a with 2 hour history of chest pain this morning that she described as dull pressure, aching with radiation into the right side of the neck and into the jaw. She was found by EMS to have a normal sinus rhythm on her EKG, normal blood sugars and vital signs, and was given 2 nitroglycerin in route to complete relief of her pain. She reported that for the past month and a half she 's had multiple similar episodes, associated with activity, and resolving with rest. She had seen Dr. Cole due to the sensation in the back of the throat and her right ear and jaw, as though it were a burning sensation, she did receive a referral to an ENT physician, but has not seen a physician yet. She has no significant risk factors for heart disease other than her age. She has no high blood pressure, diabetes, smoking history, coronary disease/OR history, and has never had symptoms like this previously. She is examined in her room in CCU. She reports recently being started on Meloxicam for hip and leg pain. Her episodes of chest pain with exertion began around the same time but usually resolved with rest. The episode that brought her into the ED was across her chest and upper arms, and did not resolve until she was given nitro. She denies fever, chills, sore throat, cough, dyspnea, N/V/ D, or dysuria. Review of Systems - Constitutional Constitutional: Absent: chills, fatigue, fever(s) - EENMT Eyes: Absent: change in vision Balance: Absent: vertigo Mouth/Throat: Absent: sore throat - Cardiovascular Cardiovascular: Present: chest pain, edema. Absent: palpitations, syncope, dyspnea on exertion, orthopnea, heart murmur Rhythm: Present: regular rhythm Vascular: Present: pedal edema - Respiratory Respiratory: Absent: cough, dyspnea, dyspnea on exertion - Gastrointestinal Gastrointestinal: Absent: abdominal pain, diarrhea, nausea, vomiting - Genitourinary Genitourinary: Absent: dysuria - Integumentary/Breasts Integumentary: Absent: rash - Neurological Neurological: Absent: dizziness - Endocrine Endocrine: Absent: palpitations [facility] Patient Stated Medical History Hx Urinary Tract Infection Yes Osteoarthritis Yes Clostridium Difficile Yes: 2014 [facility] Medical History Hypothyroidism (Chronic Medical ~1975) Clinically and chemically euthyroid. Surgical History: Hysterectomy;2003, 2 hip replacements; 2007 and 2008 Family History: Family History (Last Updated 03/17/17 @ 10:00 by Amira Sheikh MA) Father Heart disease Emphysema (subcutaneous) (surgical) resulting from a procedure Mother Thyroid disease - Social History Smoking status: Never smoker Substance use type: does not use Alcohol intake frequency: does not drink Household members: spouse Current occupational status: retired Current residence: Apartment/Private Home Medications Home Medications Medication Instructions Recorded Confirmed Type Vitamin E Mixed [Vitamin E] 400 unit PO DAILY #0 05/08/09 05/12/17 History Ascorbic Acid [Vitamin C] 500 mg PO DAILY #0 05/09/09 05/12/17 History Calcium Citrate/Vitamin D3 1 tab PO BID #0 05/09/09 05/12/17 History [Calcium Cit-Vit D 250-200 Tab] Multivit,Calc,Mins/Iron/Folic 1 each PO DAILY #0 05/09/09 05/12/17 History [One-A-Day Women's Tablet] Vitamin B Complex 100 No.2 [B-100 100 mg PO DAILY #0 05/09/09 05/12/17 History Complex] AVACO ASU 1 tab PO BID #0 03/04/17 05/12/17 History shahnaz (Zingiber officinalis) 250 500 mg PO DAILY cap 03/04/17 05/12/17 History mg capsule glucosamine-chondroitin 250 mg-200 1 tab PO DAILY tab 03/04/17 05/12/17 History mg tablet potassium gluconate 500 mg (83 mg) 500 mg PO DAILY tab 03/04/17 05/12/17 History tablet Lactobacillus Acidophilus 1 cap PO DAILY 05/12/17 05/12/17 History [Probiotic] Meloxicam 7.5 mg PO DAILY 05/12/17 05/12/17 History Allergies Allergy/AdvReac Type Severity Reaction Status Date / Time diclofenac Allergy Intermediate RASH Verified 05/12/17 05:20 naproxen Allergy Intermediate HIVES Verified 05/12/17 05:20 Penicillins Allergy Intermediate RASH Verified 05/12/17 05:20 sulfite Allergy Intermediate RASH Verified 05/12/17 05:20 ciprofloxacin [From Cipro] Allergy Verified 05/12/17 05:20 metronidazole Allergy Verified 05/12/17 05:20 aspirin AdvReac Mild UPSET Verified 05/12/17 05:20 STOMACH doxycycline AdvReac Mild VOMITING Verified 05/12/17 05:20 Shellfish Allergy Unknown Uncoded 05/12/17 05:20 lutien Allergy Uncoded 05/12/17 05:20 Exam Vital signs: Temperature 96.8 F 05/12/17 08:00 Pulse Rate 71 05/12/17 09:45 Respiratory Rate 20 05/12/17 09:45 Blood Pressure 129/66 05/12/17 09:30 Pulse Oximetry 96 05/12/17 09:45 - Constitutional no acute distress, obese, cooperative - Routine HEENT Exam Head: Present: normocephalic ENT: Present: mucous membranes moist - Routine Neck Exam Absent: JVD, carotid bruit - Routine Chest/Breast/Axilla Exam Chest wall: Absent: tenderness - Routine Respiratory Exam Present: CTA bilaterally. Absent: rales, wheezes - Routine Cardiovascular Exam Present: RRR, no murmur. Absent: JVD - Routine Abdominal Exam Present: soft, normoactive bowel sounds - Routine Extremities Exam Present: no edema - Routine Skin Exam Present: intact, dry, warm - Routine Neurological Exam Present: alert, oriented X3 - Routine Psychiatric Exam Present: normal affect, normal thought process Results 05/12/17 05:17 05/12/17 05:17 Intake and Output 05/11/17 05/12/17 05/12/17 22:59 06:59 14:59 Intake Total 19.167 / 19.167 Output Total 500 / 500 Balance -500 / -500 19.167 / 19.167 Intake: IV 19.167 / 19.167 HEPARIN DRIP 20,000 unit 19.167 / 19.167 In 500 ml @ 1,000 UNIT/HR 25 mls/hr IV .Q20H [facility] Rx#:[id number] Output: Urine 500 / 500 Other: Urine Appearance Clear Urine Color Yellow Urine Odor Normal Weight 200 lb 2.876 oz 200 lb 2.876 oz Patient Weight 05/13/17 06:59 Weight 200 lb 2.876 oz Laboratory Results - last 24 hr 05/12/17 05/12/17 05/12/17 05:17 05:17 05:17 WBC 4.1 L RBC 4.41 Hgb 13.2 Hct 40.2 MCV 91.2 MCH 29.9 MCHC 32.8 RDW Std Deviation 45.3 Plt Count 184 MPV 10.4 Immature Gran % (Auto) 0.5 Neut % (Auto) 60.2 Lymph % (Auto) 26.8 Rutherford % (Auto) 8.7 Eos % (Auto) 3.6 Baso % (Auto) 0.2 Neut # (Auto) 2.5 Lymph # (Auto) 1.1 Rutherford # (Auto) 0.4 Eos # (Auto) 0.2 Baso # (Auto) 0.0 Abs Immat Gran (auto) 0.02 INR 0.94 L APTT 30.9 Turbidity < 20 Sodium 140 Potassium 3.5 L Chloride 106 Carbon Dioxide 26 Anion Gap 8 BUN 15.0 Creatinine 0.7 GFR Calculation 81 BUN/Creatinine Ratio 21 Glucose 96 Calculated Osmolality 270 Calcium 9.7 Total Bilirubin 0.60 Conjugated Bilirubin 0.00 Unconjugated Bilirubin 0.30 Icterus Index < 2 AST 23 ALT 36 Alkaline Phosphatase 74 Troponin I 0.426 H Total Protein 6.5 Albumin 3.7 Globulin 2.8 Albumin/Globulin Ratio 1.3 Lipase 55 Specimen Hemolysis < 15 - Imaging and Cardiology Echo: pending Imaging & Cardiology Narrative: Date of Exam: 05/12/17 Ordering Provider: Carlos Eduardo Lindsey MD Type of Exam(s): XR chest 1V Reason for Exam(s): chest pain Indication: Upper chest pain PROCEDURE: XR chest 1V: Encounter: Initial Comparison: None FINDINGS: The lungs are clear. Left lower lobe granuloma. There is no abnormal airspace opacity, pleural effusion or pneumothorax identified. The heart size, pulmonary vasculature and mediastinum are within normal limits. IMPRESSION: No acute cardiopulmonary abnormality. EKG interpretations - EKG EKG results cardiology: sinus rhythm - Blocks, axis, hypertrophy, ST abn Repolarization changes or abnormalities: nonspecific abnormality, ST segment, and/or T wave Hospital Course This is a general summary of the patient's hospital course. For more details refer to the complete medical record. Hospital course: 05/12/17 - Admit to CCU - Heparin per pharmacy consult - Trend serial troponin levels - EKG: SR with T wave abnormality - Obtain echo - NPO for Heart cath this afternoon - Start BB, ACEI, Statin, Aspirin - Lipid panel in am Time spent with patient: 25 - 35 minutes DVT Prophylaxis: Heparin drip Assessment and Plan - Attestation Attestation Narrative: 05/16/17 15:33 Recommendation After examining the patient I agree with the above assessment. I am involved in the formulation of the patient's plan of care. - Assessment and Plan (1) Non-STEMI (non-ST elevated myocardial infarction) Status: Acute - Admit to CCU - Heparin per pharmacy consult - Trend serial troponin levels - EKG: SR with T wave abnormality - Obtain echo - NPO for Heart cath this afternoon - Start BB, ACEI, Statin, Aspirin - Lipid panel in am (2) Hypothyroidism Problem details: Clinically and chemically euthyroid. Status: Chronic Continue home thyroid medication (3) Obesity (BMI 30-39.9) Problem details: Better. Status: Chronic
[2017-05-12] MEDS ORDERED: LISINOPRIL 2.5 MG TABLET PO SCH (11:30)
[2017-05-12] MEDS ORDERED: IOHEXOL 350mg/ml 200ml BOTTLE ONE (12:37)
[2017-05-12] MEDS ORDERED: LIDOCAINE 1% (10mg/ml) 30ml SDV INJ ONE (12:37)
[2017-05-12] MEDS ORDERED: HEPARIN 1,000 UNITS/500 ML PREMIX (*CVL ONLY*) IV ONE (12:37)
[2017-05-12] MEDS ORDERED: NS 1,000 ML IV SCH (12:45)
[2017-05-12] MEDS ORDERED: FentaNYL 100 MCG/2 ML INJECTION ONE (12:49)
[2017-05-12] MEDS ORDERED: NITROGLYCERIN 50MG INJECTION IV ONE (12:50)
[2017-05-12] MEDS ORDERED: MIDAZOLAM 2mg/2ml INJECTION ONE (12:50)
[2017-05-12] MEDS ORDERED: HEPARIN 1,000unit/ml INJECTION 10ml ONE (12:50)
[2017-05-12] MEDS ORDERED: Verapamil 5 MG/2 ML VIAL ONE (12:50)
[2017-05-12] MEDS ORDERED: SALINE FLUSH 10ml SYRINGE ONE (13:07)
[2017-05-12] MEDS ORDERED: METOCLOPRAMIDE 10mg/2ml INJECTION IVP PRN (13:50)
[2017-05-12] MEDS ORDERED: ACETAMINOPHEN 325 MG TABLET PO PRN (13:50)
[2017-05-12] MEDS ORDERED: ONDANSETRON 4 MG/2 ML INJECTION IVP PRN (13:50)
[2017-05-12] MEDS ORDERED: BISACODYL 10 MG SUPPOSITORY RECTALLY PRN (13:50)
[2017-05-12] MEDS ORDERED: PROMETHAZINE 25 MG INJECTION IVP PRN (13:50)
[2017-05-12] MEDS ORDERED: Bisacodyl EC TAB 5 MG TABLET PO PRN (13:50)
[2017-05-12] MEDS ORDERED: MAG-AL + SIM ORAL LIQUID 30ml PO PRN (13:50)
[2017-05-12] MEDS ORDERED: HYDROCODONE/APAP 5mg/325mg TABLET PO PRN (13:50)
[2017-05-12] MEDS ORDERED: NITROGLYCERIN 0.4 MG SUBLINGUAL TABLET SL PRN (13:50)
[2017-05-12] MEDS ORDERED: MORPHINE SULFATE 4 MG SYRINGE IVP PRN ×2 (13:50)
[2017-05-12] MEDS ORDERED: ATROPINE 1 MG/ML INJECTION IVP PRN (13:50)
[2017-05-12] MEDS ORDERED: LORazepam 0.5 MG TABLET PO PRN (13:50)
--- NOTE | 2017-05-12 15:28 | Discharge Summary ---
<Nuria Wiley - Last Filed: 05/12/17 15:25> Discharge Information Date of admission: 05/12/17 06:03 Anticipated date of discharge: 05/12/17 Attending Physician: Nadir Fang MD Primary care physician: Chadwick Cole MD Consults: 05/12/17 Pharmacy Consult [CONS] Routine Pharmacy Consult: Heparin 05/12/17 13:50 Outpt Cardiac Rehab Consult [CONS] Routine - Discharge Diagnosis (1) Non-STEMI (non-ST elevated myocardial infarction) Status: Acute (2) Hypothyroidism Status: Chronic (3) Obesity (BMI 30-39.9) Status: Chronic - Laboratory Labs: Laboratory Results - last 24 hr 05/12/17 05/12/17 05/12/17 05:17 05:17 05:17 WBC 4.1 L RBC 4.41 Hgb 13.2 Hct 40.2 MCV 91.2 MCH 29.9 MCHC 32.8 RDW Std Deviation 45.3 Plt Count 184 MPV 10.4 Immature Gran % (Auto) 0.5 Neut % (Auto) 60.2 Lymph % (Auto) 26.8 Atkinson % (Auto) 8.7 Eos % (Auto) 3.6 Baso % (Auto) 0.2 Neut # (Auto) 2.5 Lymph # (Auto) 1.1 Atkinson # (Auto) 0.4 Eos # (Auto) 0.2 Baso # (Auto) 0.0 Abs Immat Gran (auto) 0.02 INR 0.94 L APTT 30.9 Turbidity < 20 Sodium 140 Potassium 3.5 L Chloride 106 Carbon Dioxide 26 Anion Gap 8 BUN 15.0 Creatinine 0.7 GFR Calculation 81 BUN/Creatinine Ratio 21 Glucose 96 Calculated Osmolality 270 Calcium 9.7 Total Bilirubin 0.60 Conjugated Bilirubin 0.00 Unconjugated Bilirubin 0.30 Icterus Index < 2 AST 23 ALT 36 Alkaline Phosphatase 74 Troponin I 0.426 H Total Protein 6.5 Albumin 3.7 Globulin 2.8 Albumin/Globulin Ratio 1.3 Lipase 55 Specimen Hemolysis < 15 05/12/17 10:55 WBC RBC Hgb Hct MCV MCH MCHC RDW Std Deviation Plt Count MPV Immature Gran % (Auto) Neut % (Auto) Lymph % (Auto) Atkinson % (Auto) Eos % (Auto) Baso % (Auto) Neut # (Auto) Lymph # (Auto) Atkinson # (Auto) Eos # (Auto) Baso # (Auto) Abs Immat Gran (auto) INR APTT Turbidity Sodium Potassium Chloride Carbon Dioxide Anion Gap BUN Creatinine GFR Calculation BUN/Creatinine Ratio Glucose Calculated Osmolality Calcium Total Bilirubin Conjugated Bilirubin Unconjugated Bilirubin Icterus Index AST ALT Alkaline Phosphatase Troponin I 0.739 H D Total Protein Albumin Globulin Albumin/Globulin Ratio Lipase Specimen Hemolysis < 15 - Radiology Radiology: Date of Exam: 05/12/17 Ordering Provider: Carlos Eduardo Lindsey MD Type of Exam(s): XR chest 1V Reason for Exam(s): chest pain Indication: Upper chest pain PROCEDURE: XR chest 1V: Encounter: Initial Comparison: None FINDINGS: The lungs are clear. Left lower lobe granuloma. There is no abnormal airspace opacity, pleural effusion or pneumothorax identified. The heart size, pulmonary vasculature and mediastinum are within normal limits. IMPRESSION: No acute cardiopulmonary abnormality. History of Present Illness HPI: Sandra is a 76 year old female patient of Dr. Chadwick Cole who presented to the ED a with 2 hour history of chest pain this morning that she described as dull pressure, aching with radiation into the right side of the neck and into the jaw. She was found by EMS to have a normal sinus rhythm on her EKG, normal blood sugars and vital signs, and was given 2 nitroglycerin in route to complete relief of her pain. She reported that for the past month and a half she 's had multiple similar episodes, associated with activity, and resolving with rest. She had seen Dr. Cole due to the sensation in the back of the throat and her right ear and jaw, as though it were a burning sensation, she did receive a referral to an ENT physician, but has not seen a physician yet. She has no significant risk factors for heart disease other than her age. She has no high blood pressure, diabetes, smoking history, coronary disease/LA history, and has never had symptoms like this previously. She is examined in her room in CCU. She reports recently being started on Meloxicam for hip and leg pain. Her episodes of chest pain with exertion began around the same time but usually resolved with rest. The episode that brought her into the ED was across her chest and upper arms, and did not resolve until she was given nitro. She denies fever, chills, sore throat, cough, dyspnea, N/V/ D, or dysuria. Hospital Course This is a general summary of the patient's hospital course. For more details refer to the complete medical record. Hospital course: 05/12/17 - Admit to CCU - Heparin per pharmacy consult - Trend serial troponin levels - EKG: SR with T wave abnormality - Obtain echo - NPO for Heart cath this afternoon - Start BB, ACEI, Statin, Aspirin - Lipid panel in am Exam Vital signs: Temperature 98.2 F 05/12/17 12:00 Pulse Rate 61 05/12/17 15:16 Respiratory Rate 19 05/12/17 15:16 Blood Pressure 154/81 H 05/12/17 12:40 Pulse Oximetry 95 05/12/17 15:16 - Constitutional no acute distress, obese, cooperative - Routine HEENT Exam Head: Present: normocephalic ENT: Present: mucous membranes moist - Routine Neck Exam Absent: JVD, carotid bruit - Routine Chest/Breast/Axilla Exam Chest wall: Absent: tenderness - Routine Respiratory Exam Present: CTA bilaterally. Absent: rales, wheezes - Routine Cardiovascular Exam Present: RRR, no murmur. Absent: JVD - Routine Abdominal Exam Present: soft, normoactive bowel sounds - Routine Extremities Exam Present: no edema - Routine Skin Exam Present: intact, dry, warm - Routine Neurological Exam Present: alert, oriented X3 - Routine Psychiatric Exam Present: normal affect, normal thought process Results 05/12/17 05:17 05/12/17 05:17 Cardiac Enzymes 05/12/17 Range/Units 10:55 Troponin I 0.739 H D (0-0.12) ng/ml Intake and Output 05/12/17 05/12/17 05/12/17 06:59 14:59 22:59 Intake Total 19.167 / 19.167 Output Total 500 / 500 Balance -500 / -500 19.167 / 19.167 Intake: IV 19.167 / 19.167 HEPARIN DRIP 20,000 unit 19.167 / 19.167 In 500 ml @ 1,000 UNIT/HR 25 mls/hr IV .Q20H [facility] Rx#:[id number] Output: Urine 500 / 500 Other: Urine Appearance Clear Urine Color Yellow Urine Odor Normal Weight 200 lb 2.876 oz 200 lb 2.876 oz Patient Weight 05/13/17 06:59 Weight 200 lb 2.876 oz - Imaging and Cardiology Echo: pending Cardiac cath: pending - EKG Interpretation EKG: sinus rhythm Discharge Plan - Med Rec/Dispo Referrals/Follow Up: Chadwick Cole MD [Family Provider] - Nadir Fang MD [Physician] - Hafsa Instructions: [facility] [place] Heart Cath Trans Rad Prescriptions: New Atorvastatin [Lipitor] 40 mg PO HS tablet Lisinopril [Prinivil] 2.5 mg PO DAILY tablet Metoprolol Tartrate [Lopressor] 12.5 mg PO BIDWM tablet Aspirin *EC* [Ecotrin] 81 mg PO DAILY tablet Continue Multivit,Calc,Mins/Iron/Folic [One-A-Day Women's Tablet] 1 each PO DAILY #0 Vitamin E Mixed [Vitamin E] 400 unit PO DAILY #0 Meloxicam 7.5 mg PO DAILY Lactobacillus Acidophilus [Probiotic] 1 cap PO DAILY Calcium Citrate/Vitamin D3 [Calcium Cit-Vit D 250-200 Tab] 1 tab PO BID #0 Ascorbic Acid [Vitamin C] 500 mg PO DAILY #0 Vitamin B Complex 100 No.2 [B-100 Complex] 100 mg PO DAILY #0 AVACO ASU 1 tab PO BID #0 glucosamine-chondroitin 250 mg-200 mg tablet 1 tab PO DAILY tab levothyroxine 175 mcg tablet 175 mcg PO .COMPLEX #90 tab potassium gluconate 500 mg (83 mg) tablet 500 mg PO DAILY tab No Action shahnaz (Zingiber officinalis) 250 mg capsule 500 mg PO DAILY cap - Disposition [address] [facility] Acute Care <Nadir Fang - Last Filed: 05/16/17 15:37> Discharge Information Date of admission: 05/12/17 06:03 Attending Physician: Nadir Fang MD Primary care physician: Chadwick Cole MD Consults: 05/12/17 Pharmacy Consult [CONS] Routine Pharmacy Consult: Heparin 05/12/17 13:50 Outpt Cardiac Rehab Consult [CONS] Routine - Discharge Diagnosis (1) Non-STEMI (non-ST elevated myocardial infarction) Status: Acute (2) Hypothyroidism Status: Chronic (3) Obesity (BMI 30-39.9) Status: Chronic Hospital Course This is a general summary of the patient's hospital course. For more details refer to the complete medical record. Exam Vital signs: Temperature 96.8 F 05/12/17 16:00 Pulse Rate 74 05/12/17 17:00 Respiratory Rate 31 H 05/12/17 17:00 Blood Pressure 117/64 05/12/17 16:45 Pulse Oximetry 96 05/12/17 17:00 Results 05/12/17 05:17 05/12/17 05:17 Discharge Plan - Med Rec/Dispo - Attestation Attestation Narrative: 05/16/17 15:37 Recommendation After examining the patient I agree with the above assessment. I am involved in the formulation of the patient's plan of care.
[2017-05-12 19:18] VITALS: BP 117/64; PULSE 74; RESP 31; TEMP 96.8; O2SAT 96
[2017-05-12] MEDS ORDERED: ATORVASTATIN 40 MG TABLET PO SCH (21:00)
[2017-05-13] MEDS ORDERED: LEVOTHYROXINE 175 MCG TABLET PO SCH (06:30)
[2017-05-13] MEDS ORDERED: ASPIRIN *EC* 81 MG TABLET PO SCH (09:00)
--- NOTE | 2017-05-13 12:42 | Echocardiogram ---
DATE OF PROCEDURE May 12, 2017 This is a two-dimensional echo with spectral Doppler, color-flow and M-mode. It was obtained in a patient with non-STEMI. Left atrial dimension is normal. Left ventricle end-diastolic dimension is increased. Left ventricle wall thickness is normal. Posterior and lateral palmer are hypokinetic with ejection fraction of about 50%. Right atrium is normal. Right ventricle is normal. Aortic root dimension is normal. Mitral valve is morphologically normal with trace of mitral regurgitation. Aortic valve appears to be normal. Tricuspid valve shows trace of tricuspid regurgitation with normal estimated pulmonary artery systolic pressure of 31. Pulmonary valve shows no pulmonary insufficiency. There is no pericardial effusion. IMPRESSION 1. Wall motion abnormalities as described above with ejection fraction of 50%. 2. Left ventricular dilation. 3. Trace of mitral regurgitation. 4. Trace of tricuspid regurgitation with normal estimated pulmonary artery systolic pressure of 31. MTDD
--- NOTE | 2017-05-13 13:09 | Cardiac Catheterization Report ---
DATE OF PROCEDURE May 12, 2017 INDICATIONS The patient is a very pleasant 76-year-old lady who was admitted with non-STEMI and was referred for further evaluation by cardiac catheterization and possible intervention. INFORMED CONSENT Informed consent was obtained after explaining the procedure and the potential risks to the patient who agreed to proceed with the procedure. PROCEDURE 1. Left heart catheterization. 2. Coronary angiography. 3. Left ventriculography. TECHNIQUE She was prepped and draped in the usual sterile techniques. Conscious sedation was performed using Versed and fentanyl. 1% lidocaine was used for local anesthesia. Using modified Seldinger technique, arterial access was obtained into the right radial artery with placement of a 6-Monegasque arterial sheath. 3000 units of heparin, 300 mcg of nitroglycerin, and 2.5 mg of verapamil were given through the arterial sheath. LEFT VENTRICULOGRAPHY Left ventriculography in single-plane HANDLEY shallow projection showed anterior hypokinesia with ejection fraction of about 50% with no mitral regurgitation or gradient across the aortic valve. LVEDP was about 16. CORONARY ANGIOGRAPHY Left main was free of significant lesions. Left anterior descending artery had eccentric 70-75% proximal stenosis. Remaining course of LAD was unremarkable with the LAD wrapping around the apex. Diagonals were free of significant lesions. Left circumflex artery had 99% stenosis just proximal to the bifurcation of the marginal. Marginal also had 90-99% stenosis. Right coronary artery also had about 70% mid stenosis. The patient tolerated the procedure well with no complications. IMPRESSION 1. Multivessel coronary artery disease as described above. 2. Wall motion abnormalities as described above with ejection fraction of 50%. PLAN Will consult surgery for possible surgical revascularization of the coronary artery disease. DUANE
[2017-05-17] MEDS ORDERED: LEVOTHYROXINE 175 MCG TABLET PO SCH (06:30)
== END 2017-05-12 17:00 | disposition short-term general hospital (02) | DRG 282 ==
LOC: ED 04:59 → CCU 06:03
PROVIDERS: ADMIT Internal Medicine Cardiovascular Disease; ATTEND Internal Medicine Cardiovascular Disease